=== PATIENT | male | born 1980 | race Caucasian/White ===

== ENCOUNTER 2018-03-20 05:03 | Emergency (ER) | payer MEDICAID ==
[~2018-03-20] VITALS: Ht 175.3 cm; Wt 102.0 kg
[2018-03-20] MEDS ORDERED: KETOROLAC 30 MG/1 ML ONE ×2 (05:29→07:21)
[2018-03-20] MEDS ORDERED: KETOROLAC 30 MG/1 ML IM ONE (05:30)
[2018-03-20 06:09] LABS: BASOPHILS # (AUTO) 0.02 x10^3/uL (0-0.1); BASOPHILS % (AUTO) 0 % (0-1); EOSINOPHILS # (AUTO) 0.13 x10^3/uL (0-0.4); EOSINOPHILS % (AUTO) 2 % (1-7); LYMPHOCYTES # (AUTO) 1.67 x10^3/uL (1-3.4); LYMPHOCYTES % (AUTO) 26 % (22-44); MD NO; MEAN CORPUSCULAR HEMOGLOBIN 31.9 pg (27.5-34.5); MEAN CORPUSCULAR HGB CONC 34.6 g/dL (33.2-36.2); MEAN CORPUSCULAR VOLUME 92.1 fL (81-97); MEAN PLATELET VOLUME 8.4 fL (7.4-10.4); MONOCYTES % (AUTO) 6 % (2-9); NEUTROPHILS # (AUTO) 4.24 x10^3/uL (1.8-6.8); NEUTROPHILS % (AUTO) 66 % (42-75); PLATELET COUNT 181 x10^3/uL (130-400); RED BLOOD COUNT 4.81 x10^6/uL (4.38-5.82); RED CELL DISTRIBUTION WIDTH 13.6 % (9.4-14.8)
[2018-03-20 06:21] LABS: ALBUMIN 3.5 g/dL (3.4-5.0); ANION GAP 6 mmol/L (5-15); CHLORIDE 111 mmol/L (98-107); CREATININE 0.95 mg/dL (0.7-1.3)
[2018-03-20 07:06] LABS: MICROSCOPIC NOT IND
[2018-03-20 07:18] LABS: CULTURE INDICATED? NO
[2018-03-20 07:26] VITALS: BP 129/49
== END 2018-03-20 08:08 | disposition home or self-care (01) ==
LOC: ED 07:55
DX: R10.32 Left lower quadrant pain (principal); Z90.49 Acquired absence of other specified parts of digestive tract
CPT/HCPCS: 36415; 76870; 80048; 81003; 82040; 85025; 96372; 99285; J1885